=== PATIENT | male | born 2000 | race Caucasian/White ===

== ENCOUNTER 2022-03-27 20:02 | Emergency (ER) | payer SELFPAY ==
[~2022-03-27] VITALS: Ht 152.4 cm; Wt 68.0 kg
--- NOTE | 2022-03-27 20:02 | NUR ---
ANA LUNA, PREBOOK. TAKEN TO CHAIR B
[2022-03-27 20:17] VITALS: BP 122/68
[2022-03-27 20:56] VITALS: BP 122/68
--- NOTE | 2022-03-27 20:57 | NUR ---
Patient discharged with v/s stable BY ERMD. Written and verbal after care instructions given and explained. Patient verbalized understanding. Police with in custody. All questions addressed prior to discharge. Advised to follow up with PMD.
== END 2022-03-27 20:57 ==
LOC: MED 20:02
DX: M54.50 Low back pain, unspecified (principal); V49.88XA Car occupant (driver) (passenger) injured in other specified transport accidents, initial encounter; Y93.89 Activity, other specified; Y92.89 Other specified places as the place of occurrence of the external cause; Y99.8 Other external cause status
CPT/HCPCS: 99283